=== PATIENT | male | born 1985 | race African-American/Black ===

== ENCOUNTER 2018-05-14 01:27 | Emergency (ER) | payer OTHER ==
[2018-05-14] MEDS: HYDROCODONE/APAP (5/325) TAB PO (03:26)
== END 2018-05-14 04:02 | disposition home or self-care (01) ==
LOC: FTE 01:27
DX: S20.211A Contusion of right front wall of thorax, initial encounter (principal); Y04.0XXA Assault by unarmed brawl or fight, initial encounter
CPT/HCPCS: 71100; 99283-25